=== PATIENT | male | born 2000 | race American Indian/Alaskan Native ===

== ENCOUNTER 2019-03-03 13:23 | Emergency (ER) | payer OTHER ==
--- NOTE | 2019-03-03 14:13 | Emergency Department Report ---
Blank Doc - Documentation Documentation: 18 y o male presents to ed cc of Chest pain x day denies trauma, heavy lifting describes pain in constant and localized to left side, 6/10 intensity cxr, basic labs ACC eval
[2019-03-03 14:14] VITALS: BP 128/58
[2019-03-03 14:50] LABS: Basophils % (Auto) 0.5 % (0.0-1.8); Eosinophils # (Auto) 0.1 K/mm3 (0.0-0.4); Eosinophils % (Auto) 2.1 % (0.0-4.3); Hematocrit 43.2 % (35.5-45.6); Hemoglobin 14.1 gm/dl (11.8-15.2); Lymphocytes # (Auto) 1.6 K/mm3 (1.2-5.4); Lymphocytes % (Auto) 32.8 % (13.4-35.0); Mean Corpuscular HGB Conc 33 % (32-34); Mean Corpuscular Volume 88 fl (84-94); Monocytes # (Auto) 0.4 K/mm3 (0.0-0.8); Monocytes % (Auto) 9.1 % (0.0-7.3); Platelet Count 166 K/mm3 (140-440); Red Cell Distribution Width 14.5 % (13.2-15.2)
[2019-03-03 14:59] LABS: BUN/Creatinine Ratio 14; Blood Urea Nitrogen 15 mg/dL (9-20); Calcium 9.5 mg/dL (8.4-10.2); Hemolysis Index 14
--- NOTE | 2019-03-03 15:59 | XRay Report ---
PROCEDURE: XR CHEST ROUTINE 2V TECHNIQUE: PA and lateral chest radiographs were obtained. HISTORY: Chest Pain COMPARISONS: None. FINDINGS: Heart: Normal size. Mediastinum/Vessels: Normal. Lungs/Pleural space: Clear.. Bony thorax: No acute osseous abnormality. IMPRESSION: Negative examination. This document is electronically signed by Bhupinder Causey MD., March 03 2019 04:57:25 PM ET
--- NOTE | 2019-03-03 16:25 | Emergency Department Report ---
ED Chest Pain HPI - General Chief Complaint: Chest Pain Stated Complaint: CHEST PAIN Time Seen by Provider: 03/03/19 14:11 Source: patient Mode of arrival: Ambulatory Limitations: No Limitations - History of Present Illness Initial Comments: Mr. Nguyen is a 18 yo male without significant past medical history who presents with irregular heart beat for the past 3 days. Noticed mostly at rest. He feels a quick marito or squeeze lasts less than a second. Has been frequent over the past 3 days. Has not slept well. Denies alcohol, tobacco or drug abuse. has had intense exercise regimen. Drinks aloe vera juice instead of water. He is a college student. He is on college scholarship for [employer]. 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 MD Complaint: chest pain -: Gradual, days(s) (3) Onset: during rest Pain Location: substernal Quality: sharp Consistency: intermittent Improves With: nothing Worsens With: nothing - Related Data Home Medications Medication Instructions Recorded Confirmed Last Taken No Known Home Medications [No 06/19/15 06/19/15 Unknown Reported Home Medications] Allergies Allergy/AdvReac Type Severity Reaction Status Date / Time No Known Allergies Allergy Verified 03/03/19 13:26 Heart Score - HEART Score History: Slightly suspicious EKG: Normal Age: < 45 Risk factors: No known risk factors Troponin: < normal limit HEART Score: 0 ED Review of Systems ROS: Stated complaint: CHEST PAIN Other details as noted in HPI Comment: All other systems reviewed and negative Respiratory: denies: cough Cardiovascular: chest pain, palpitations ED Past Medical Hx - Past Medical History Previous Medical History?: Yes Hx Asthma: Yes - Surgical History Past Surgical History?: No - Social History Smoking Status: Never Smoker Substance Use Type: None - Medications Home Medications: Home Medications Medication Instructions Recorded Confirmed Last Taken Type No Known Home Medications [No 06/19/15 06/19/15 Unknown History Reported Home Medications] ED Physical Exam - General Limitations: No Limitations General appearance: alert, in no apparent distress - Head Head exam: Present: atraumatic, normocephalic - Eye Eye exam: Present: normal appearance - ENT ENT exam: Present: mucous membranes moist - Neck Neck exam: Present: normal inspection, full ROM - Respiratory Respiratory exam: Present: normal lung sounds bilaterally. Absent: respiratory distress, wheezes, rales, rhonchi - Cardiovascular Cardiovascular Exam: Present: regular rate, normal rhythm, normal heart sounds. Absent: systolic murmur, diastolic murmur, rubs, gallop - GI/Abdominal GI/Abdominal exam: Present: soft, normal bowel sounds. Absent: distended, tenderness, guarding, rebound - Rectal Rectal exam: Present: deferred - Extremities Exam Extremities exam: Present: normal inspection - Back Exam Back exam: Present: normal inspection - Neurological Exam Neurological exam: Present: alert, oriented X3 - Psychiatric Psychiatric exam: Present: normal affect, normal mood - Skin Skin exam: Present: warm, dry, intact, normal color. Absent: rash ED Course Vital Signs 03/03/19 14:11 Temperature 98.2 F Pulse Rate 86 Respiratory 18 Rate Blood Pressure 128/58 O2 Sat by Pulse 98 Oximetry ED Medical Decision Making - Lab Data Result diagrams: 03/03/19 14:27 03/03/19 14:27 Laboratory Results - last 24 hr 03/03/19 03/03/19 14:27 14:27 WBC 4.9 RBC 4.90 Hgb 14.1 Hct 43.2 MCV 88 MCH 29 MCHC 33 RDW 14.5 Plt Count 166 Lymph % (Auto) 32.8 [place] % (Auto) 9.1 H Eos % (Auto) 2.1 Baso % (Auto) 0.5 Lymph # 1.6 [place] # 0.4 Eos # 0.1 Baso # 0.0 Seg Neutrophils % 55.5 Seg Neutrophils # 2.7 Sodium 141 Potassium 4.2 Chloride 106.0 Carbon Dioxide 26 Anion Gap 13 BUN 15 Creatinine 1.1 Estimated GFR > 60 BUN/Creatinine Ratio 14 Glucose 90 Calcium 9.5 Troponin T < 0.010 Vital Signs - 24 hr 03/03/19 14:11 Temperature 98.2 F Pulse Rate 86 Respiratory 18 Rate Blood Pressure 128/58 O2 Sat by Pulse 98 Oximetry - EKG Data 03/03/19 16:23 EKG obtained 1333 Normal sinus rhythm rate 85 beats a minute normal axis normal intervals frequent PVCsand no significant ST Elevation no signs of pericarditis - Medical Decision Making Irregular heart beat due to frequent PVCs: Recommended rest hydration increase intake of electrolytes referred to automobile service station attendant for urgent follow-up if symptoms continue Critical care attestation.: If time is entered above; I have spent that time in minutes in the direct care of this critically ill patient, excluding procedure time. ED Disposition Clinical Impression: PVCs (premature ventricular contractions), Palpitations Disposition: DC-01 TO HOME OR SELFCARE Is pt being admited?: No Does the pt Need Aspirin: No Condition: Stable Instructions: Premature Ventricular Contractions (ED) Referrals: MARY VILLA MD [Staff Physician] - 2-3 Days
== END 2019-03-03 16:32 | disposition home or self-care (01) ==
LOC: ED 13:23
DX: I49.3 Ventricular premature depolarization (principal); J45.909 Unspecified asthma, uncomplicated
CPT/HCPCS: 36415; 71046; 80048; 84484; 85025; 93005; 93010

== ENCOUNTER 2019-03-31 07:24 | Emergency (ER) | payer OTHER ==
[2019-03-31] MEDS ORDERED: ZOFRAN IV ONE (07:46)
[2019-03-31] MEDS ORDERED: DILAUDID IV ONE ×2 (07:46→12:14)
[2019-03-31] MEDS ORDERED: TORADOL IV ONE (07:46)
[2019-03-31] MEDS ORDERED: NACL 0.9% 1000 ML 1,000 ML IV ONE ×2 (07:47→09:03)
--- NOTE | 2019-03-31 08:07 | Emergency Department Report ---
ED Abdominal Pain HPI - General Chief Complaint: Abdominal Pain Stated Complaint: ABDOMINAL Time Seen by Provider: 03/31/19 07:43 Source: patient, family, old records reviewed Mode of arrival: Ambulatory Limitations: No Limitations - History of Present Illness Initial Comments: 18-year-old maleHas medical or surgical history presents with abdominal pain with nausea, vomiting and diarrhea started this a.m. Patient complains of 10/10 generalized abdominal pain described as a constant cramp. It is worse to palpation. No alleviating factors. No fever reported. Patient had recent dysuria that was thought to be due to sexually transmitted disease. He was empirically treated with a shot and a pill. He also received an antibiotic prescription and states he was treated for gonorrhea, area and Trichomonas. Patient's results were subsequently negative for gonorrhea, Chlamydia, and Trichomonas. Upon follow-up with his primary care doctor 3 days ago and was placed on amoxicillin for UTI and patient has 3 days left. Patient reports that his dysuria has been improving. He denies testicular pain or penile discharge. Patient stated he has had some loose stools since initiating antibiotic treatment 1-2 episodes daily. - Related Data Previous Rx's Medication Instructions Recorded Last Taken Type Ondansetron [Zofran Odt] 4 mg PO Q8HR PRN #20 tab.rapdis 03/31/19 Unknown Rx traMADol [Ultram 50 MG tab] 50 mg PO Q6HR PRN #15 tablet 03/31/19 Unknown Rx Allergies Allergy/AdvReac Type Severity Reaction Status Date / Time No Known Allergies Allergy Verified 03/03/19 13:26 ED Review of Systems ROS: Stated complaint: ABDOMINAL Other details as noted in HPI Comment: All other systems reviewed and negative ED Past Medical Hx - Past Medical History Previous Medical History?: No Hx Asthma: Yes - Surgical History Past Surgical History?: No - Social History Smoking Status: Never Smoker Substance Use Type: None - Medications Home Medications: Home Medications Medication Instructions Recorded Confirmed Last Taken Type Ondansetron [Zofran Odt] 4 mg PO Q8HR PRN #20 tab.rapdis 03/31/19 Unknown Rx traMADol [Ultram 50 MG tab] 50 mg PO Q6HR PRN #15 tablet 03/31/19 Unknown Rx ED Physical Exam - General Limitations: No Limitations - Other Other exam information: General: moderate distress due to pain Head exam: Atraumatic, normocephalic Eyes exam: Normal appearance, pupils equal reactive to light, extraocular movements intact ENT: Moist mucous membrane, normal oropharynx Neck exam: Normal inspection, full range of motion, no meningismus nontender Respiratory exam: Clear to auscultation bilateral, no wheezes, rales, crackles Cardiovascular: Normal rate and rhythm, normal heart sounds Abdomen: Soft, nondistended, abd pain greatest in the right upper quadrant, epigastric, and left sided abdomen, with normal bowel sounds, no rebound, or guarding Extremity: Full range of motion normal inspection no deformity Back: Normal Inspection, full range of motion, no tenderness Neurologic: Alert, oriented x3, cranial nerves intact, no motor or sensory deficit Skin: Warm, dry, intact ED Course Vital Signs 03/31/19 03/31/19 03/31/19 07:31 07:58 08:25 Temperature 99.3 F Pulse Rate 89 Respiratory 18 15 16 Rate Blood Pressure 136/79 [Right] O2 Sat by Pulse 100 Oximetry 03/31/19 03/31/19 08:28 09:55 Temperature 98.5 F Pulse Rate 67 Respiratory 16 16 Rate Blood Pressure 112/62 [Right] O2 Sat by Pulse 99 Oximetry ED Medical Decision Making - Lab Data Result diagrams: 03/31/19 07:44 03/31/19 07:44 Lab Results 03/31/19 03/31/19 03/31/19 Range/Units 07:44 07:44 07:45 WBC 6.9 (4.5-11.0) K/mm3 RBC 4.73 (3.65-5.03) M/mm3 Hgb 13.7 (11.8-15.2) gm/dl Hct 41.2 (35.5-45.6) % MCV 87 (84-94) fl MCH 29 (28-32) pg MCHC 33 (32-34) % RDW 14.6 (13.2-15.2) % Plt Count 132 L (140-440) K/mm3 Lymph % (Auto) 12.0 L (13.4-35.0) % [place] % (Auto) 8.1 H (0.0-7.3) % Eos % (Auto) 0.6 (0.0-4.3) % Baso % (Auto) 0.1 (0.0-1.8) % Lymph # 0.8 L (1.2-5.4) K/mm3 [place] # 0.6 (0.0-0.8) K/mm3 Eos # 0.0 (0.0-0.4) K/mm3 Baso # 0.0 (0.0-0.1) K/mm3 Seg Neutrophils % 79.2 H (40.0-70.0) % Seg Neutrophils # 5.5 (1.8-7.7) K/mm3 Sodium 139 (137-145) mmol/L Potassium 3.8 (3.6-5.0) mmol/L Chloride 103.0 (98-107) mmol/L Carbon Dioxide 23 (22-30) mmol/L Anion Gap 17 mmol/L BUN 14 (9-20) mg/dL Creatinine 1.3 (0.8-1.5) mg/dL Estimated GFR > 60 ml/min BUN/Creatinine Ratio 11 % Glucose 134 H (75-100) mg/dL Calcium 9.1 (8.4-10.2) mg/dL Total Bilirubin 1.20 (0.1-1.2) mg/dL AST 45 H (5-40) units/L ALT 32 (7-56) units/L Alkaline Phosphatase 50 (35-129) units/L Total Protein 7.1 (6.3-8.2) g/dL Albumin 4.3 (3.9-5) g/dL Albumin/Globulin Ratio 1.5 % Lipase 24 (13-60) units/L Urine Color (Yellow) Urine Turbidity (Clear) Urine pH (5.0-7.0) Ur Specific [place] (1.003-1.030) Urine Protein (Negative) mg/dL Urine Glucose (UA) (Negative) mg/dL Urine Ketones (Negative) mg/dL Urine Blood (Negative) Urine Nitrite (Negative) Urine Bilirubin (Negative) Urine Urobilinogen (<2.0) mg/dL Ur Leukocyte Esterase (Negative) Urine WBC (Auto) (0.0-6.0) /HPF Urine RBC (Auto) (0.0-6.0) /HPF U Epithel Cells (Auto) (0-13.0) /HPF Urine Bacteria (Auto) (Negative) /HPF Urine Mucus /HPF 03/31/19 Range/Units 09:13 WBC (4.5-11.0) K/mm3 RBC (3.65-5.03) M/mm3 Hgb (11.8-15.2) gm/dl Hct (35.5-45.6) % MCV (84-94) fl MCH (28-32) pg MCHC (32-34) % RDW (13.2-15.2) % Plt Count (140-440) K/mm3 Lymph % (Auto) (13.4-35.0) % [place] % (Auto) (0.0-7.3) % Eos % (Auto) (0.0-4.3) % Baso % (Auto) (0.0-1.8) % Lymph # (1.2-5.4) K/mm3 [place] # (0.0-0.8) K/mm3 Eos # (0.0-0.4) K/mm3 Baso # (0.0-0.1) K/mm3 Seg Neutrophils % (40.0-70.0) % Seg Neutrophils # (1.8-7.7) K/mm3 Sodium (137-145) mmol/L Potassium (3.6-5.0) mmol/L Chloride (98-107) mmol/L Carbon Dioxide (22-30) mmol/L Anion Gap mmol/L BUN (9-20) mg/dL Creatinine (0.8-1.5) mg/dL Estimated GFR ml/min BUN/Creatinine Ratio % Glucose (75-100) mg/dL Calcium (8.4-10.2) mg/dL Total Bilirubin (0.1-1.2) mg/dL AST (5-40) units/L ALT (7-56) units/L Alkaline Phosphatase (35-129) units/L Total Protein (6.3-8.2) g/dL Albumin (3.9-5) g/dL Albumin/Globulin Ratio % Lipase (13-60) units/L Urine Color Yellow (Yellow) Urine Turbidity Clear (Clear) Urine pH 7.0 (5.0-7.0) Ur Specific [place] 1.019 (1.003-1.030) Urine Protein <15 mg/dl (Negative) mg/dL Urine Glucose (UA) Neg (Negative) mg/dL Urine Ketones Tr (Negative) mg/dL Urine Blood Neg (Negative) Urine Nitrite Neg (Negative) Urine Bilirubin Neg (Negative) Urine Urobilinogen < 2.0 (<2.0) mg/dL Ur Leukocyte Esterase Tr (Negative) Urine WBC (Auto) 7.0 H (0.0-6.0) /HPF Urine RBC (Auto) 3.0 (0.0-6.0) /HPF U Epithel Cells (Auto) < 1.0 (0-13.0) /HPF Urine Bacteria (Auto) 1+ (Negative) /HPF Urine Mucus Few /HPF - Radiology Data Radiology results: report reviewed PROCEDURE: CT ABDOMEN PELVIS W CON TECHNIQUE: CT of the abdomen and pelvis was performed. IV contrast was ad ministered. Portal venous and delayed phase images were obtained. Axial images and coronal and sagittal reformatted images were obtained. HISTORY: abd pain, recent uti, n,v COMPARISON: None FINDINGS: The visualized lung bases are clear. The visualized liver, spleen, pancreas, adrenal glands and kidneys demonstrate no significant abnormality. There is no abnormal fluid collection seen. There is no free intraperitoneal air. The aorta is normal in appearance and caliber. There is no evidence for intestinal obstruction. The appendix is normal. Delayed images demonstrate contrast material within the renal collecting systems, ureters and bladder. Ureters have normal course and caliber. Bladder is unremarkable. There is no abnormal pelvic fluid collection or mass seen. IMPRESSION: There is no significant abnormality identified. - Medical Decision Making Patient is having an improvement in his symptoms with amoxicillin. I'm unsure of the assist on amoxicillin or Augmentin. He is awake, he reports decreased dysuria he does not present with fever, leukocytosis, or CT findings of pyelonephritis. Patient's symptoms could be due to a side effect of his recent antibiotics versus a gastroenteritis. Patient would be treating symptomatic ally. Patient had improvement in pain and by mouth tolerance with resolution of nausea and vomiting in the ED Family informed that urine culture and gonorrhea/chlamydia have been sent and are pending. The also states that PMD has also sent a urine culture. - Differential Diagnosis renal colic, gastroenteritis, appendicitis, Biliary colic, diverticulitis Critical Care Time: No Critical care attestation.: If time is entered above; I have spent that time in minutes in the direct care of this critically ill patient, excluding procedure time. ED Disposition Clinical Impression: Nausea vomiting and diarrhea, Abdominal cramps, UTI (urinary tract infection) Disposition: TO HOME OR SELFCARE Is pt being admited?: No Does the pt Need Aspirin: No Condition: Stable Instructions: Abdominal Pain (ED), Gastroenteritis (ED) Additional Instructions: Take the medication as prescribed. Follow up with your doctor or the clinic/doctor provided. Return if symptoms worsen as indicated by your discharge instructions Prescriptions: traMADol [Ultram 50 MG tab] 50 mg PO Q6HR PRN #15 tablet PRN Reason: Pain Ondansetron [Zofran Odt] 4 mg PO Q8HR PRN #20 tab.rapdis PRN Reason: Nausea And Vomiting Referrals: your primary care doctor, [Other] - 2-3 Days Time of Disposition: 12:20
[2019-03-31 08:44] LABS: Alanine Aminotransferase 32 units/L (7-56); Albumin 4.3 g/dL (3.9-5); BUN/Creatinine Ratio 11; Blood Urea Nitrogen 14 mg/dL (9-20); Calcium 9.1 mg/dL (8.4-10.2); Hemolysis Index 11
[2019-03-31 09:00] LABS: Basophils % (Auto) 0.1 % (0.0-1.8); Eosinophils % (Auto) 0.6 % (0.0-4.3); Hematocrit 41.2 % (35.5-45.6); Hemoglobin 13.7 gm/dl (11.8-15.2); Lymphocytes # (Auto) 0.8 K/mm3 (1.2-5.4); Mean Corpuscular HGB Conc 33 % (32-34); Mean Corpuscular Volume 87 fl (84-94); Monocytes # (Auto) 0.6 K/mm3 (0.0-0.8); Monocytes % (Auto) 8.1 % (0.0-7.3); Platelet Count 132 K/mm3 (140-440); Red Blood Count 4.73 M/mm3 (3.65-5.03); Red Cell Distribution Width 14.6 % (13.2-15.2)
[2019-03-31 09:33] LABS: Bacteria,Urine 1+ /HPF (Negative); Bilirubin,Urine NEG (Negative); Blood,Urine NEG (Negative); Color,Urine Yellow (Yellow); Mucus,Urine FEW /HPF; Protein,Urine <15 mg/dL mg/dL (Negative); Urobilinogen,Urine < 2.0 mg/dL (<2.0)
--- NOTE | 2019-03-31 10:07 | Cat Scan Report ---
PROCEDURE: CT ABDOMEN PELVIS W CON TECHNIQUE: CT of the abdomen and pelvis was performed. IV contrast was administered. Portal venous an d delayed phase images were obtained. Axial images and coronal and sagittal reformatted images were o btained. HISTORY: abd pain, recent uti, n,v COMPARISON: None FINDINGS: The visualized lung bases are clear. The visualized liver, spleen, pancreas, adrenal glands and kidneys demonstrate no significant abnorma lity. There is no abnormal fluid collection seen. There is no free intraperitoneal air. The aorta is normal in appearance and caliber. There is no evidence for intestinal obstruction. The appendix is normal. Delayed images demonstrate contrast material within the renal collecting systems, ureters and bladder . Ureters have normal course and caliber. Bladder is unremarkable. There is no abnormal pelvic fluid collection or mass seen. IMPRESSION: There is no significant abnormality identified. This document is electronically signed by Stephanie Tan MD., March 31 2019 10:06:07 AM ET
[2019-03-31] MEDS ORDERED: BENTYL IM ONE (12:14)
[2019-03-31 12:47] VITALS: BP 111/67
== END 2019-03-31 12:46 | disposition home or self-care (01) ==
LOC: ED 07:24
DX: N39.0 Urinary tract infection, site not specified (principal); J45.909 Unspecified asthma, uncomplicated
CPT/HCPCS: 36415; 74177; 80053; 81001; 83690; 85025; 87086; 96361; 96372; 96374; 96375; 96376; 99284; J0500; J1170; J1885; J2405; J7030; Q9967